=== PATIENT | male | born 1970 | race Caucasian/White ===

== ENCOUNTER 2018-02-02 05:52 | Observation (INO) | payer SELFPAY ==
[2018-02-02] VITALS (7 sets, daily range): BP systolic 107–152; BP diastolic 56–80; PULSE 50–75; RESP 18; TEMP 97.6–98.6; O2SAT 96–98
[~2018-02-02] VITALS: Ht 162.6 cm; Wt 103.0 kg
--- NOTE | 2018-02-02 06:22 | PD ---
HPI Chief Complaint: Abdominal Pain Time Seen by Provider: 06:17 Travel History International Travel<30 days: No Contact w/Intl Traveler<30days: No Traveled to known affect area: No History of Present Illness HPI 47-year-old male presents to the emergency department for 2 days of nausea vomiting diarrhea and abdominal pain. Patient reports has had similar symptoms in the past. Patient is status post partial bowel removal for reported history of intussusception. Patient denies history of inflammatory bowel disease/Crohn' s/ulcerative colitis. Patient states she has had bilious emesis and has noted some blood and dark stool with his diarrhea. Patient denies fever or chills. No report of chest pain or shortness of breath. No dysuria frequency urgency hematuria or flank pain. Patient is unable to identify exacerbating or alleviating factors. Pain is reported as 9/10 intensity. PFSH Past Medical History Narrative Medical Intussusception, partial bowel excision, tobacco use alcohol use substance use; nursing notes reviewed Medical History: Denies Significant Hx Diminished Hearing: No Past Surgical History Abdominal Surgery: Yes (8 INCHES OF SMALL INTESTINE REMOVED R/T INTUSSUSCEPTION ) Social History Alcohol Use: Yes (OCC) Tobacco Use: Yes (1PPD) Substance Use: Yes (WEED) Allergies-Medications (Allergen,Severity, Reaction): Coded Allergies: No Known Allergies (Unverified , 02/02/18) Reported Meds & Prescriptions Reported Meds & Active Scripts Active No Active Prescriptions or Reported Medications Review of Systems Except as stated in HPI: all other systems reviewed are Neg General / Constitutional: No: Fever, Chills HENT: No: Congestion Cardiovascular: No: Chest Pain or Discomfort Respiratory: No: Shortness of Breath Gastrointestinal: Positive: Nausea, Vomiting, Diarrhea, Abdominal Pain Genitourinary: No: Urgency, Frequency, Dysuria Musculoskeletal: No: Myalgias, Arthralgias Skin: No Rash Neurologic: Positive: Weakness Psychiatric: No: Anxiety Hematologic/Lymphatic: No: Lymph Node Enlargement Physical Exam Narrative GENERAL: Well-developed thin male disheveled appears to be in discomfort no respiratory distress SKIN: Warm and dry. HEAD: Normocephalic. EYES: No scleral icterus. No injection or drainage. NECK: Supple, trachea midline. No JVD or lymphadenopathy. CARDIOVASCULAR: Regular rate and rhythm without murmurs, gallops, or rubs. RESPIRATORY: Breath sounds equal bilaterally. No accessory muscle use. GASTROINTESTINAL: Abdomen soft, diffusely tender, nondistended. No guarding or rebound. MUSCULOSKELETAL: No cyanosis, or edema. BACK: Nontender without obvious deformity. No CVA tenderness. Data Data Last Documented VS Vital Signs Date Time Temp Pulse Resp B/P (MAP) Pulse Ox O2 Delivery O2 Flow Rate FiO2 02/02/18 06:05 58 18 130/77 (94) 98 Room Air 02/02/18 05:53 97.6 Orders Orders Complete Blood Count With Diff (02/02/18 06:08) Comprehensive Metabolic Panel (02/02/18 06:08) Urinalysis - C+S If Indicated (02/02/18 06:08) Iv Access Insert/Monitor (02/02/18 06:08) Oxygen Administration (02/02/18 06:08) Oximetry (02/02/18 06:08) Lipase (02/02/18 06:08) Lactic Acid (02/02/18 06:08) Sodium Chlor 0.9% 1000 Ml Inj (Ns 1000 M (02/02/18 06:30) Ondansetron Inj (Zofran Inj) (02/02/18 06:30) Ct Abd/Pel W Iv Contrast(Rout) (02/02/18 ) Labs Laboratory Tests Test 02/02/18 06:00 02/02/18 06:09 White Blood Count 11.8 TH/MM3 Red Blood Count 5.49 MIL/MM3 Hemoglobin 17.3 GM/DL Hematocrit 49.4 % Mean Corpuscular Volume 89.9 FL Mean Corpuscular Hemoglobin 31.5 PG Mean Corpuscular Hemoglobin Concent 35.0 % Red Cell Distribution Width 13.5 % Platelet Count 324 TH/MM3 Mean Platelet Volume 6.8 FL Neutrophils (%) (Auto) 86.6 % Lymphocytes (%) (Auto) 7.5 % Monocytes (%) (Auto) 5.8 % Eosinophils (%) (Auto) 0.0 % Basophils (%) (Auto) 0.1 % Neutrophils # (Auto) 10.2 TH/MM3 Lymphocytes # (Auto) 0.9 TH/MM3 Monocytes # (Auto) 0.7 TH/MM3 Eosinophils # (Auto) 0.0 TH/MM3 Basophils # (Auto) 0.0 TH/MM3 CBC Comment DIFF FINAL Differential Comment Total Protein 8.7 GM/DL Alkaline Phosphatase 67 U/L Alanine Aminotransferase (ALT/SGPT) 22 U/L Total Bilirubin 0.9 MG/DL Lactic Acid Level 2.3 mmol/L MDM Medical Decision Making Medical Screen Exam Complete: Yes Emergency Medical Condition: Yes Medical Record Reviewed: Yes Differential Diagnosis Gastroenteritis, colitis, diverticulitis, bowel obstruction; less likely intussusception or volvulus Narrative Course Patient placed on monitor IV access obtained specimens collected and sent for resulting; patient administered normal saline 1 L bolus along with Zofran 4 mg IV for complaint of nausea @ [address] signed over to oncoming MD Dr Johnson for pending labs/CT Scripts No Active Prescriptions or Reported Meds Ny Escalante MD Feb 02, 2018 06:22
[2018-02-02] MEDS ORDERED: ONDANSETRON HCL 4 MG/2 ML VIAL IV PUSH ONE ×2 (06:30→07:45)
[2018-02-02] MEDS ORDERED: SODIUM CHLOR 0.9% 1000 ML INJ 1,000 ML IV ONE (06:30)
[2018-02-02 06:40] LABS: AUTOMATED NEUTROPHIL # 10.2 TH/MM3 (1.8-7.7); BASOPHIL % 0.1 % (0.0-2.0); HEMATOCRIT 49.4 % (39.0-51.0); HEMOGLOBIN 17.3 GM/DL (13.0-17.0); LYMPH % 7.5 % (9.0-44.0); LYMPHOCYTE # 0.9 TH/MM3 (1.0-4.8); MEAN CELL VOLUME 89.9 FL (80.0-100.0); MEAN CORPUSCULAR HEMOGLOBIN 31.5 PG (27.0-34.0); MEAN PLATELET VOLUME 6.8 FL (7.0-11.0); MONO % 5.8 % (0.0-8.0); NEUT % 86.6 % (16.0-70.0); PLATELET COUNT 324 TH/MM3 (150-450); RED BLOOD COUNT 5.49 MIL/MM3 (4.50-5.90); RED CELL DISTRIBUTION WIDTH 13.5 % (11.6-17.2); WHITE BLOOD COUNT 11.8 TH/MM3 (4.0-11.0)
[2018-02-02 06:41] LABS: MONOCYTE # 0.7 TH/MM3 (0-0.9)
[2018-02-02 06:44] LABS: ALT (GPT) 22 U/L (12-78)
[2018-02-02 06:46] LABS: ALKALINE PHOSPHATASE 67 U/L (45-117); TOTAL BILIRUBIN ADULT 0.9 MG/DL (0.2-1.0); TOTAL PROTEIN 8.7 GM/DL (6.4-8.2)
[2018-02-02 07:14] LABS: ALBUMIN 4.7 GM/DL (3.4-5.0); AST (GOT) 20 U/L (15-37); BICARBONATE 29.4 MEQ/L (21.0-32.0); BLOOD UREA NITROGEN 29 MG/DL (7-18); CALCIUM 9.9 MG/DL (8.5-10.1); CHLORIDE 98 MEQ/L (98-107); CREATININE 1.62 MG/DL (0.60-1.30); GLOMERULAR FILTRATION RATE 46 ML/MIN (>89); GLUCOSE,RANDOM 135 MG/DL (74-106); SODIUM (NA) 136 MEQ/L (136-145)
[2018-02-02] MEDS ORDERED: KETOROLAC TROMETHAMINE 30 MG/ML (IVP) VIAL IV PUSH ONE (07:45)
[2018-02-02] MEDS ORDERED: IOHEXOL 350 MG/ML 10 ML VIAL (for RAD DIAG) IVCONTRAST ONE (07:47)
--- NOTE | 2018-02-02 08:33 | RADRPT ---
EXAM DATE/TIME: 02/02/2018 07:40 [facility] COMPARISON: No previous studies available for comparison. INDICATIONS : Nausea, vomiting and periumbilical pain for 2 days IV CONTRAST: 94 cc Omnipaque 350 (iohexol) IV ORAL CONTRAST: No oral contrast ingested. RADIATION DOSE: 6.64 CTDIvol (mGy) MEDICAL HISTORY : None SURGICAL HISTORY : partial bowel removal ENCOUNTER: Initial ACUITY: 2 days PAIN SCALE: 4/10 LOCATION: periumbilical TECHNIQUE: Volumetric scanning of the abdomen and pelvis was performed. Using automated exposure control and ad justment of the mA and/or kV according to patient size, radiation dose was kept as low as reasonably achievable to obtain optimal diagnostic quality images. DICOM format image data is available electro nically for review and comparison. FINDINGS: LOWER LUNGS: The visualized lower lungs are clear. LIVER: Homogeneous density without lesion. There is no dilation of the biliary tree. No calcified gallston es. SPLEEN: Normal size without lesion. PANCREAS: Within normal limits. KIDNEYS: Normal in size and shape. There is no mass, stone or hydronephrosis. ADRENAL GLANDS: Within normal limits. VASCULAR: There is no aortic aneurysm. BOWEL/MESENTERY: Fine surgical catherine are seen in the region of the small bowel the left upper abdominal quadrant aileen racteristic of a reported history of prior partial bowel resection. Just inferior to this location, t here appears to be an intussuscepted segment of small bowel with no concomitant evidence of more prox imal obstruction. This is located just inferior and left to the umbilicus region. ABDOMINAL WALL: Within normal limits. RETROPERITONEUM: There is no lymphadenopathy. BLADDER: No wall thickening or mass. REPRODUCTIVE: Within normal limits. INGUINAL: There is no lymphadenopathy or hernia. MUSCULOSKELETAL: Within normal limits for patient age. CONCLUSION: 1. CT findings concerning for a small bowel intussusception located in the periumbilical region just inferior and to the left of the umbilicus. This is located just inferior to an area of apparent prior small bowel resection. 2. No concomitant evidence of more proximal obstruction. Otherwise negative. Richie Maldonado MD on February 02, 2018 at 8:26 Board Certified Radiologist. This report was verified electronically.
[2018-02-02] MEDS ORDERED: DIATRIZOATE MEGLUM/DIATRIZOATE SOD 120 ML BTL (for RAD DIAG) PO ONE (08:45)
--- NOTE | 2018-02-02 08:54 | PD ---
Data Data Last Documented VS Vital Signs Date Time Temp Pulse Resp B/P (MAP) Pulse Ox O2 Delivery O2 Flow Rate FiO2 02/02/18 09:00 50 18 122/56 (78) 96 Room Air 02/02/18 05:53 97.6 Orders Orders Complete Blood Count With Diff (02/02/18 06:08) Comprehensive Metabolic Panel (02/02/18 06:08) Urinalysis - C+S If Indicated (02/02/18 06:08) Iv Access Insert/Monitor (02/02/18 06:08) Oxygen Administration (02/02/18 06:08) Oximetry (02/02/18 06:08) Lipase (02/02/18 06:08) Lactic Acid (02/02/18 06:08) Sodium Chlor 0.9% 1000 Ml Inj (Ns 1000 M (02/02/18 06:30) Ondansetron Inj (Zofran Inj) (02/02/18 06:30) Ct Abd/Pel W Iv Contrast(Rout) (02/02/18 ) Ondansetron Inj (Zofran Inj) (02/02/18 07:45) Ketorolac Inj (Toradol Inj) (02/02/18 07:45) Iohexol 350 Inj (Omnipaque 350 Inj) (02/02/18 07:47) Consult General Surgery (02/02/18 ) Place In Observation (02/02/18 ) Code Status (02/02/18 09:16) Vital Signs (Adult) Q4H (02/02/18 09:16) Activity Oob With Assistance (02/02/18 09:16) Diet Npo (02/02/18 Breakfast) Sodium Chlor 0.9% 1000 Ml Inj (Ns 1000 M (02/02/18 09:16) Sodium Chloride 0.9% Flush (Ns Flush) (02/02/18 09:30) Sodium Chloride 0.9% Flush (Ns Flush) (02/02/18 21:00) Acetaminophen (Tylenol) (02/02/18 09:30) Ondansetron Inj (Zofran Inj) (02/02/18 09:30) Temazepam (Restoril) (02/02/18 09:30) Comprehensive Metabolic Panel (02/03/18 06:00) Complete Blood Count With Diff (02/03/18 06:00) Case Management Consult (02/02/18 09:16) Heparin Inj (Heparin Inj) (02/02/18 09:30) Acetaminophen (Tylenol) (02/02/18 09:30) Ketorolac Inj (Toradol Inj) (02/02/18 09:30) Ketorolac Inj (Toradol Inj) (02/02/18 09:30) Naloxone Inj (Narcan Inj) (02/02/18 09:30) Magnesium Hydroxide Liq (Milk Of Magnesi (02/02/18 09:30) Piperacil-Tazo 3.375 Gm Premix (Zosyn 3. (02/02/18 10:00) Admit Order (Ed Use Only) (02/02/18 ) Labs Laboratory Tests Test 02/02/18 06:09 02/02/18 08:05 White Blood Count 11.8 TH/MM3 Red Blood Count 5.49 MIL/MM3 Hemoglobin 17.3 GM/DL Hematocrit 49.4 % Mean Corpuscular Volume 89.9 FL Mean Corpuscular Hemoglobin 31.5 PG Mean Corpuscular Hemoglobin Concent 35.0 % Red Cell Distribution Width 13.5 % Platelet Count 324 TH/MM3 Mean Platelet Volume 6.8 FL Neutrophils (%) (Auto) 86.6 % Lymphocytes (%) (Auto) 7.5 % Monocytes (%) (Auto) 5.8 % Eosinophils (%) (Auto) 0.0 % Basophils (%) (Auto) 0.1 % Neutrophils # (Auto) 10.2 TH/MM3 Lymphocytes # (Auto) 0.9 TH/MM3 Monocytes # (Auto) 0.7 TH/MM3 Eosinophils # (Auto) 0.0 TH/MM3 Basophils # (Auto) 0.0 TH/MM3 CBC Comment DIFF FINAL Differential Comment Blood Urea Nitrogen 29 MG/DL Creatinine 1.62 MG/DL Random Glucose 135 MG/DL Total Protein 8.7 GM/DL Albumin 4.7 GM/DL Calcium Level 9.9 MG/DL Alkaline Phosphatase 67 U/L Aspartate Amino Transf (AST/SGOT) 20 U/L Alanine Aminotransferase (ALT/SGPT) 22 U/L Total Bilirubin 0.9 MG/DL Sodium Level 136 MEQ/L Potassium Level 3.7 MEQ/L Chloride Level 98 MEQ/L Carbon Dioxide Level 29.4 MEQ/L Anion Gap 9 MEQ/L Estimat Glomerular Filtration Rate 46 ML/MIN Lactic Acid Level 2.3 mmol/L Lipase 57 U/L Urine Color YELLOW Urine Turbidity CLEAR Urine pH 6.0 Urine Specific [place] GREATER THAN 1.050 Urine Protein 30 mg/dL Urine Glucose (UA) NEG mg/dL Urine Ketones 40 mg/dL Urine Occult Blood SMALL Urine Nitrite NEG Urine Bilirubin NEG Urine Urobilinogen LESS THAN 2.0 MG/DL Urine Leukocyte Esterase NEG Urine RBC 1 /hpf Urine WBC 1 /hpf Urine Squamous Epithelial Cells <1 /hpf Urine Mucus MOD /lpf Microscopic Urinalysis Comment CULT NOT INDICATED MDM Supervised Visit with JARVIS: No Narrative Course Patient CARE soon from Dr. Ny Escalante at 0700 this is a 47-year-old male with a history of recurrent sporadic intussusception, he has been told that he needed surgery in the past but states he has never had surgery for his intussusception. States it always spontaneously resolved itself. CAT scan shows a fair length of bowel that is intussuscepted, surgical consult was placed Dr. Tijerina, will be expectedly management in the early going of his hospitalization. Discussed with hospitalist service for admission. His pain fairly well under control, discussed the results with the patient and he is agreeable. Diagnosis Primary Impression: Intussusception Admitting Information Admitting Physician Requests: Admit Scripts No Active Prescriptions or Reported Meds Condition: Vargas Bernal MD Feb 02, 2018 08:53
[2018-02-02 09:11] LABS: BILIRUBIN, URINE NEG (NEG); BLOOD, URINE SMALL (NEG); GLUCOSE,URINE NEG (NEG); KETONE, URINE 40 mg/dL (NEG); MUCUS URINE MOD /lpf (OCC); NITRITE,URINE NEG (NEG); SQUAMOUS EPITHELIAL CELL URINE <1 /hpf (0-5); URINE COLOR YELLOW (YELLW/STRAW); URINE LEUKOCYTE ESTERASE NEG (NEG)
[2018-02-02] MEDS ORDERED: TEMAZEPAM 15 MG CAP PO PRN (09:30)
[2018-02-02] MEDS ORDERED: NALOXONE HCL 0.4 MG/ML AMP IV PUSH PRN (09:30)
[2018-02-02] MEDS ORDERED: KETOROLAC TROMETHAMINE 30 MG/ML (IVP) VIAL IV PUSH PRN (09:30)
[2018-02-02] MEDS ORDERED: ACETAMINOPHEN 325 MG TAB PO PRN ×2 (09:30)
[2018-02-02] MEDS ORDERED: SODIUM CHLORIDE 0.9% FLUSH 10 ML FLUSH IV FLUSH PRN (09:30)
[2018-02-02] MEDS ORDERED: MAGNESIUM HYDROXIDE SUSP 30 ML CUP PO PRN (09:30)
[2018-02-02] MEDS: SODIUM CHLOR 0.9% 1000 ML INJ 1,000 ML IV SCH ×2 (09:53→17:00)
[2018-02-02] MEDS: HEPARIN SODIUM - SQ 10,000 UNITS/ML VIAL SQ SCH ×2 (10:43→20:20)
[2018-02-02] MEDS: MORPHINE SULFATE 2 MG/ML INJ IV PUSH PRN (10:43)
[2018-02-02] MEDS: PIPERACIL-TAZO 3.375 GM PREMIX 50 ML IV SCH ×2 (10:44→19:01)
[2018-02-02] MEDS: ONDANSETRON HCL 4 MG/2 ML VIAL IVP PRN ×3 (10:44→20:20)
--- NOTE | 2018-02-02 12:08 | MB ---
cc: Jose Tijerina MD DATE OF CONSULT: REASON FOR CONSULTATION: Abdominal pain, intussusception. HISTORY OF PRESENT ILLNESS: Patient is a 47-year-old male who presents with a 2-day history of nausea, vomiting and abdominal pain. Patient states the pain started progressively. It was left-sided periumbilical and continued to get worse. Pain was 6/10, currently is 4/10, diffuse, achy, worse with movement, better with lying still. Patient came to the emergency department for further evaluation, including CT scan showing findings of intussusception; therefore, surgery was consulted. Patient confirms above and further denies any significant medical history other than noted to have a previous intussusception status post surgical resection 3 years ago. Patient has unknown pathology and states this was done in [place]. He states since this, he has had several recurrent bouts of intussusception, approximately 5 times, all treated with CT scans and nonoperative management, IV fluids and pain control. He presents with a recurrent episode. He further denies any weight loss. He denies any family history of cancers. PAST MEDICAL HISTORY: Intussusception. PAST SURGICAL HISTORY: Small bowel resection for intussusception. SOCIAL HISTORY: Positive ETOH, positive smoking, positive THC. ALLERGIES: NO KNOWN DRUG ALLERGIES. MEDICATIONS: See EMR. FAMILY HISTORY: Mother with diabetes. Denies CAD or hypertension. REVIEW OF SYSTEMS: GENERAL: Denies fevers, chills. HEENT: Denies eye pain, ear pain. NECK: Denies swelling or pain. LUNGS: Denies cough or wheeze. HEART: Denies chest pain or palpitations. ABDOMEN: Complains of nausea, vomiting, diarrhea. GENITOURINARY: Denies dysuria, hematuria. ENDOCRINE: Denies polyuria or polydipsia. NEUROLOGIC: Denies numbness or weakness. PSYCHIATRIC: Denies anxiety or change in mood. PHYSICAL EXAMINATION: GENERAL: Patient no acute distress. VITAL SIGNS: Temperature 97.6, pulse 58, respiration 18, blood pressure 130/77, saturation 98%. HEENT: Pupils equal, round, reactive. NECK: Supple. Trachea midline. LUNGS: Clear to auscultation bilaterally. HEART: S1, S2. Regular rhythm. ABDOMEN: Soft. Nondistended. Mild tenderness to palpation left periumbilical area. No rebound, no guarding. Well-healed surgical scars. EXTREMITIES: Warm, well perfused. BACK: No deformity. NEUROLOGIC: GCS of 15. 5/5 movement all extremities. LABORATORY AND DIAGNOSTIC DATA: WBC 11.8, hemoglobin 17.3, hematocrit 49.4, platelets 324. Sodium 136, potassium 3.7, chloride 98, BUN 29, creatinine 1.6, glucose 135, lactate 2.3, AST 20, ALT 22, lipase 57. CT reviewed by myself showing intussusception bowel, no evidence of free air or free fluid, evidence of previous anastomosis. ASSESSMENT: Patient 47-year-old male, recurrent intussusception. PLAN: After full workup, patient with above main issues. Patient does have intussusception on CT scan. At this point, I discussed with patient regarding potential options and regarding possible surgery versus observation. It does not appear that patient has any peritoneal signs or evidence of bowel ischemia or perforation; however, I did discuss with this patient that there is a risk of these issues regarding intussusception. Further, there is nondefinitive diagnosis as the cause of the intussusception and told the patient concern could be some sort of mass or malignancy. I stated this may be a little less common given his long history of intussusception; however, until the bowel is resected, we would not have any definitive pathology. At this point, he states his pain has improved some. He is not currently vomiting and would like to attempt nonoperative management. We will follow patient with abdominal exams, labs. Discussed with patient if increased white blood cell count or fever, may need operative intervention; however, we will consider getting a small bowel follow through in a few days and bowel rest for now. He is in agreement with this. Thank you for consultation. MD VIDYA Foster/MARK , 11:48 AM , 12:07 PM
[2018-02-02] MEDS ORDERED: MORPHINE SULFATE 2 MG/ML INJ IV PUSH PRN (14:45)
--- NOTE | 2018-02-02 14:52 | HHI.HP ---
[facility] No Primary Care Physician Admission Diagnosis Intussusception. Diagnoses: (1) Intussusception of small bowel (2) Tobacco abuse (3) Leukocytosis Chief Complaint: Abdominal pain Travel History International Travel<30 Days: No Contact w/Intl Traveler <30 Da: No Traveled to Known Affected Are: No History of Present Illness 47 years old man with a known history of Intussusception and s/p small bowel resection 3 yrs ago with multiple recurrent of intussusception at least 5 times over the past several months, presents to the ED for evaluation of 2-3 days history of nausea and vomiting along with 8/10 left sided abdominal as well as periumbilical pain, which is described as squeezing and dull in nature. Patient states lying still relieves the pain. CT abdomen reveals intussusception. He was previously in the hospital and treated conservatively with IVF hydration as well as pain management. He currently denies any febrile episode of GI bleed Review of Systems Except as stated in HPI: all other systems reviewed are Neg Past Family Social History Past Medical History Intussusception Tobacco abuse Past Surgical History small bowel resection Reported Medications Not on any medication Allergies: Coded Allergies: No Known Allergies (Unverified , 02/02/18) Family History Positive for DM Social History smokes 1ppd, +marijuana, reports social alcohol intake Physical Exam Vital Signs Vital Signs Date Time Temp Pulse Resp B/P (MAP) Pulse Ox O2 Delivery O2 Flow Rate FiO2 02/02/18 13:47 75 18 128/67 (87) 96 Room Air 02/02/18 09:00 50 18 122/56 (78) 96 Room Air 02/02/18 07:30 96 Room Air 02/02/18 07:30 96 Room Air 02/02/18 06:05 58 18 130/77 (94) 98 Room Air 02/02/18 05:53 97.6 58 18 145/74 (97) 98 Physical Exam GENERAL: This is a well-nourished, well-developed patient, in no apparent distress. SKIN: No rashes, ecchymoses or lesions. Cool and dry. HEAD: Atraumatic. Normocephalic. No temporal or scalp tenderness. EYES: Pupils equal round and reactive. Extraocular motions intact. No scleral icterus. No injection or drainage. ENT: Nose without bleeding, purulent drainage or septal hematoma. Throat without erythema, tonsillar hypertrophy or exudate. Uvula midline. Airway patent. NECK: Trachea midline. No JVD or lymphadenopathy. Supple, nontender, no meningeal signs. CARDIOVASCULAR: Regular rate and rhythm without murmurs, gallops, or rubs. RESPIRATORY: Clear to auscultation. Breath sounds equal bilaterally. No wheezes , rales, or rhonchi. GASTROINTESTINAL: Abdomen soft, mildly tender LLQ, nondistended. No hepato- splenomegaly, or palpable masses. No guarding. MUSCULOSKELETAL: Extremities without clubbing, cyanosis, or edema. No joint tenderness, effusion, or edema noted. No calf tenderness. Negative Homans sign bilaterally. NEUROLOGICAL: Awake and alert. Cranial nerves II through XII intact. Motor and sensory grossly within normal limits. Five out of 5 muscle strength in all muscle groups. Normal speech. Laboratory Laboratory Tests Test 02/02/18 06:09 02/02/18 08:05 White Blood Count 11.8 Red Blood Count 5.49 Hemoglobin 17.3 Hematocrit 49.4 Mean Corpuscular Volume 89.9 Mean Corpuscular Hemoglobin 31.5 Mean Corpuscular Hemoglobin Concent 35.0 Red Cell Distribution Width 13.5 Platelet Count 324 Mean Platelet Volume 6.8 Neutrophils (%) (Auto) 86.6 Lymphocytes (%) (Auto) 7.5 Monocytes (%) (Auto) 5.8 Eosinophils (%) (Auto) 0.0 Basophils (%) (Auto) 0.1 Neutrophils # (Auto) 10.2 Lymphocytes # (Auto) 0.9 Monocytes # (Auto) 0.7 Eosinophils # (Auto) 0.0 Basophils # (Auto) 0.0 CBC Comment DIFF FINAL Differential Comment Blood Urea Nitrogen 29 Creatinine 1.62 Random Glucose 135 Total Protein 8.7 Albumin 4.7 Calcium Level 9.9 Alkaline Phosphatase 67 Aspartate Amino Transf (AST/SGOT) 20 Alanine Aminotransferase (ALT/SGPT) 22 Total Bilirubin 0.9 Sodium Level 136 Potassium Level 3.7 Chloride Level 98 Carbon Dioxide Level 29.4 Anion Gap 9 Estimat Glomerular Filtration Rate 46 Lactic Acid Level 2.3 Lipase 57 Urine Color YELLOW Urine Turbidity CLEAR Urine pH 6.0 Urine Specific [place] [employer] GREATER THAN 1.050 Urine Protein 30 Urine Glucose (UA) NEG Urine Ketones 40 Urine Occult Blood SMALL Urine Nitrite NEG Urine Bilirubin NEG Urine Urobilinogen LESS THAN 2.0 Urine Leukocyte Esterase NEG Urine RBC 1 Urine WBC 1 Urine Squamous Epithelial Cells <1 Urine Mucus MOD Microscopic Urinalysis Comment CULT NOT INDICATED Result Diagram: 02/02/18 0609 02/02/18 0609 Imaging Last Impressions Abdomen/Pelvis CT 02/02/18 0000 Signed Impressions: Service Date/Time: January 07:40 - CONCLUSION: 1. CT findings concerning for a small bowel intussusception located in the periumbilical region just inferior and to the left of the umbilicus. This is located just inferior to an area of apparent prior small bowel resection. 2. No concomitant evidence of more proximal obstruction. Otherwise negative. Richie Maldonado MD Septic Shock Reassessment Septic shock perfusion: reassessment completed Caprini VTE Risk Assessment Caprini VTE Risk Assessment: No/Low Risk (score <= 1) Caprini Risk Assessment Model Point Value = 1 Point Value = 2 Point Value = 3 Point Value = 5 Age 41-60 Minor surgery BMI > 25 kg/m2 Swollen legs Varicose veins or History of unexplained or recurrent spontaneous Oral contraceptives or hormone replacement Sepsis (< 1 month) Serious lung disease, including pneumonia (< 1 month) Abnormal pulmonary function Acute myocardial infarction Congestive heart failure (< 1 month) History of inflammatory bowel disease Medical patient at bed rest Age 61-74 Arthroscopic surgery Major open surgery (> 45 min) Laparoscopic surgery (> 45 min) Malignancy Confined to bed (> 72 hours) Immobilizing plaster cast Central venous access Age >= 75 History of VTE Family history of VTE Factor V Leiden Prothrombin [id number] Lupus anticoagulant Anticardiolipin antibodies Elevated serum homocysteine Heparin-induced thrombocytopenia Other congenital or acquired thrombophilia Stroke (< 1 month) Elective arthroplasty Hip, pelvis, or leg fracture Acute spinal cord injury (< 1 month) Prophylaxis Regimen Total Risk Factor Score Risk Level Prophylaxis Regimen 0-1 Low Early ambulation 2 Moderate Order ONE of the following: *Sequential Compression Device (SCD) *Heparin 5000 units SQ BID 3-4 Higher Order ONE of the following medications: *Heparin 5000 units SQ TID *Enoxaparin/Lovenox 40 mg SQ daily (WT < 150 kg, CrCl > 30 mL/min) *Enoxaparin/Lovenox 30 mg SQ daily (WT < 150 kg, CrCl > 10-29 mL/min) *Enoxaparin/Lovenox 30 mg SQ BID (WT < 150 kg, CrCl > 30 mL/min) AND/OR *Sequential Compression Device (SCD) 5 or more Highest Order ONE of the following medications: *Heparin 5000 units SQ TID (Preferred with Epidurals) *Enoxaparin/Lovenox 40 mg SQ daily (WT < 150 kg, CrCl > 30 mL/min) *Enoxaparin/Lovenox 30 mg SQ daily (WT < 150 kg, CrCl > 10-29 mL/min) *Enoxaparin/Lovenox 30 mg SQ BID (WT < 150 kg, CrCl > 30 mL/min) AND *Sequential Compression Device (SCD) Assessment and Plan Problem List: (1) Intussusception of small bowel ICD Code: K56.1 - Intussusception (2) Blood glucose elevated ICD Code: R73.9 - Hyperglycemia, unspecified (3) Leukocytosis ICD Code: D72.829 - Elevated white blood cell count, unspecified (4) Tobacco abuse ICD Code: Z72.0 - Tobacco use Assessment and Plan 47 years old man with Intussusception of small bowel CT abdomen/pelvis noted and review with finding of intussusception General surgery consulted Keep NPO, IVF hydration, Parenteral Pain management Empiric Zosyn IV will be started Check SBFT in AM Blood Glucose elevated No known history of DM, check HgA1C and treat accordingly Tobacco abuse Tobacco cessation counselling provided Start Nicotine TD daily DVT prophylaxis: Heparin Code Status Full code Discussed Condition With Patient, , ED physician Tommy Coppola MD Feb 02, 2018 14:52
[2018-02-02] MEDS: NICOTINE 21 MG/24 HR PATCH T-DERMAL SCH (17:03)
[2018-02-02] MEDS: SODIUM CHLORIDE 0.9% FLUSH 10 ML FLUSH IV FLUSH SCH (20:20)
[2018-02-02] MEDS: KETOROLAC TROMETHAMINE 30 MG/ML (IVP) VIAL IV PUSH PRN (23:33)
[2018-02-03 00:58] VITALS: BP 141/75; PULSE 73; RESP 18; TEMP 98.3; O2SAT 97
[2018-02-03] MEDS: PIPERACIL-TAZO 3.375 GM PREMIX 50 ML IV SCH ×3 (03:00→16:44)
[2018-02-03] MEDS: KETOROLAC TROMETHAMINE 30 MG/ML (IVP) VIAL IV PUSH PRN (06:41)
[2018-02-03] MEDS: SODIUM CHLOR 0.9% 1000 ML INJ 1,000 ML IV SCH ×2 (06:42→14:27)
[2018-02-03 08:05] VITALS: BP 123/68; PULSE 55; RESP 20; TEMP 98.9; O2SAT 99
[2018-02-03 08:15] LABS: AUTOMATED NEUTROPHIL # 7.7 TH/MM3 (1.8-7.7); BASOPHIL % 0.3 % (0.0-2.0); HEMATOCRIT 40.4 % (39.0-51.0); HEMOGLOBIN 14.1 GM/DL (13.0-17.0); LYMPH % 13.2 % (9.0-44.0); LYMPHOCYTE # 1.3 TH/MM3 (1.0-4.8); MEAN CELL VOLUME 91.3 FL (80.0-100.0); MEAN CORPUSCULAR HEMOGLOBIN 31.8 PG (27.0-34.0); MEAN CORPUSCULAR HGB CONC 34.8 % (32.0-36.0); MEAN PLATELET VOLUME 6.8 FL (7.0-11.0); MONO % 9.4 % (0.0-8.0); MONOCYTE # 0.9 TH/MM3 (0-0.9); NEUT % 77.1 % (16.0-70.0); PLATELET COUNT 230 TH/MM3 (150-450); RED BLOOD COUNT 4.42 MIL/MM3 (4.50-5.90); RED CELL DISTRIBUTION WIDTH 13.2 % (11.6-17.2)
[2018-02-03] MEDS: MORPHINE SULFATE 2 MG/ML INJ IV PUSH PRN (08:25)
[2018-02-03] MEDS: HEPARIN SODIUM - SQ 10,000 UNITS/ML VIAL SQ SCH (08:26)
[2018-02-03] MEDS: ONDANSETRON HCL 4 MG/2 ML VIAL IVP PRN (08:26)
[2018-02-03] MEDS: SODIUM CHLORIDE 0.9% FLUSH 10 ML FLUSH IV FLUSH SCH (08:27)
[2018-02-03] MEDS: NICOTINE 21 MG/24 HR PATCH T-DERMAL SCH (08:27)
[2018-02-03 08:53] LABS: ALBUMIN 3.3 GM/DL (3.4-5.0); ALKALINE PHOSPHATASE 45 U/L (45-117); ALT (GPT) 16 U/L (12-78); AST (GOT) 11 U/L (15-37); BICARBONATE 29.1 MEQ/L (21.0-32.0); BLOOD UREA NITROGEN 16 MG/DL (7-18); CALCIUM 7.7 MG/DL (8.5-10.1); CHLORIDE 109 MEQ/L (98-107); CHOLESTEROL 154 MG/DL (120-200); CHOLESTEROL/ HDL RATIO 2.66 RATIO; CREATININE 1.07 MG/DL (0.60-1.30); GLOMERULAR FILTRATION RATE 73 ML/MIN (>89); GLUCOSE,RANDOM 96 MG/DL (74-106); HDL CHOLESTEROL 57.8 MG/DL (40.0-60.0); LDL CHOLESTEROL 73 MG/DL (0-99); SODIUM (NA) 144 MEQ/L (136-145); TOTAL BILIRUBIN ADULT 0.7 MG/DL (0.2-1.0); TOTAL PROTEIN 6.2 GM/DL (6.4-8.2); TRIGLYCERIDES 115 MG/DL (42-150)
[2018-02-03] MEDS ORDERED: REMOVE OLD PATCH T-DERMAL SCH (09:00)
--- NOTE | 2018-02-03 10:42 | RADRPT ---
EXAM DATE/TIME: 02/03/2018 08:42 [place] COMPARISON: No previous studies available for comparison. INDICATIONS : Intussusception per CT report. FLUORO TIME: 0.3 minutes IMAGE COUNT: 10 CONTRAST: MD Recinos IMAGING TIME(S): 15 min, 30 min, 45 min, 1 hr, 1.5 hrs MEDICAL HISTORY : None. SURGICAL HISTORY : 8" of small bowel removed due to intussusception. ENCOUNTER: Subsequent ACUITY: 3 days PAIN SCORE: 8/10 LOCATION: mid abdomen. FINDINGS: Preliminary film is unremarkable. The stomach is grossly unremarkable. Examination of the small bowel demonstrates normal mucosal pattern involving the jejunum and ileum. There is no evidence of mass or obstruction. No intraluminal filling defects are identified. Small bowel transit time is normal at approximately 60 minutes .Fluoroscopy of the abdomen and terminal ile um demonstrates no abnormality. CONCLUSION: Unremarkable small bowel examination. I do not see evidence for an intussusception which is well visualized on the CT scan of 02/03/2008 Bowel gas pattern appears normal. There is no bowel wall thickening. Tavares Singletary MD FACR on February 03, 2018 at 10:38 Board Certified Radiologist. This report was verified electronically.
[2018-02-03 11:53] VITALS: BP 138/75; PULSE 56; RESP 20; TEMP 98.6; O2SAT 99
--- NOTE | 2018-02-03 13:45 | HHI.PR ---
Subjective Remarks Follow-up intussusception. Feels much better denies nausea, vomiting and abdominal pain. He is passing flatus. He wants to eat and drink and wants to go home. Discussed with general surgery, follow-up SBFT negative for intussusception will start diet and if tolerated discharge home. Objective Vitals Vital Signs Date Time Temp Pulse Resp B/P (MAP) Pulse Ox O2 Delivery O2 Flow Rate FiO2 02/03/18 11:53 98.6 56 20 138/75 (96) 99 02/03/18 08:05 98.9 55 20 123/68 (86) 99 02/03/18 00:58 98.3 73 18 141/75 (97) 97 02/02/18 20:54 98.6 58 18 107/56 (73) 96 02/02/18 17:46 98.0 51 18 152/80 (104) 97 02/02/18 13:47 75 18 128/67 (87) 96 Room Air I/O 02/02/18 02/02/18 02/02/18 02/03/18 02/03/18 02/03/18 07:00 15:00 23:00 07:00 15:00 23:00 Intake Total 1000 ml Balance 1000 ml Intake IV Total 1000 ml Result Diagram: 02/03/18 0719 02/03/18 0719 Imaging Last Impressions Small Bowel X-Ray 02/03/18 0600 Signed Impressions: Service Date/Time: Saturday, February 03, 2018 08:42 - CONCLUSION: Unremarkable small bowel examination. I do not see evidence for an intussusception which is well visualized on the CT scan of 02/03/2008 Bowel gas pattern appears normal. There is no bowel wall thickening. Taavres Singletary MD FACR Abdomen/Pelvis CT 02/02/18 0000 Signed Impressions: Service Date/Time: January 07:40 - CONCLUSION: 1. CT findings concerning for a small bowel intussusception located in the periumbilical region just inferior and to the left of the umbilicus. This is located just inferior to an area of apparent prior small bowel resection. 2. No concomitant evidence of more proximal obstruction. Otherwise negative. Richie Maldonado MD Objective Remarks GENERAL: This is a well-nourished, well-developed patient, in no apparent distress. SKIN: No rashes, ecchymoses or lesions. Cool and dry. CARDIOVASCULAR: Regular rate and rhythm without murmurs, gallops, or rubs. RESPIRATORY: Clear to auscultation. Breath sounds equal bilaterally. No wheezes , rales, or rhonchi. GASTROINTESTINAL: Abdomen soft, nontender. No guarding. MUSCULOSKELETAL: Extremities without clubbing, cyanosis, or edema. No joint tenderness, effusion, or edema noted. No calf tenderness. Negative Homans sign bilaterally. NEUROLOGICAL: Awake and alert. Cranial nerves II through XII intact. Motor and sensory grossly within normal limits. Five out of 5 muscle strength in all muscle groups. Normal speech. Procedures none A/P Problem List: (1) Intussusception of small bowel ICD Code: K56.1 - Intussusception (2) Blood glucose elevated ICD Code: R73.9 - Hyperglycemia, unspecified (3) Leukocytosis ICD Code: D72.829 - Elevated white blood cell count, unspecified (4) Tobacco abuse ICD Code: Z72.0 - Tobacco use Assessment and Plan 47 years old man with Intussusception of small bowel. Follow-up SBFT with no evidence. Start diet and if tolerated DC home Blood Glucose elevated. Fasting glucose within normal limits. Pending A1c in Acute kidney injury secondary to dehydration. Improved with IV hydration. Avoid nephrotoxins Tobacco and marijuana abuse. Patient has been counseled DVT prophylaxis: Heparin Discharge Planning Discharge patient to home Condition on discharge: Improved Regular Diet as tolerated Ad Lillian activity Rx written: None Follow-up with primary care physician Darrius Castillo MD Feb 03, 2018 13:45
--- NOTE | 2018-02-03 15:32 | HHI.PR ---
Subjective Subjective Notes Resting in bed Feels hungry Objective Vitals/I&O Vital Signs Date Time Temp Pulse Resp B/P (MAP) Pulse Ox O2 Delivery O2 Flow Rate FiO2 02/03/18 11:53 98.6 56 20 138/75 (96) 99 02/02/18 13:47 Room Air Labs Laboratory Tests Test 02/03/18 07:19 White Blood Count 10.0 Red Blood Count 4.42 Hemoglobin 14.1 Hematocrit 40.4 Mean Corpuscular Volume 91.3 Mean Corpuscular Hemoglobin 31.8 Mean Corpuscular Hemoglobin Concent 34.8 Red Cell Distribution Width 13.2 Platelet Count 230 Mean Platelet Volume 6.8 Neutrophils (%) (Auto) 77.1 Lymphocytes (%) (Auto) 13.2 Monocytes (%) (Auto) 9.4 Eosinophils (%) (Auto) 0.0 Basophils (%) (Auto) 0.3 Neutrophils # (Auto) 7.7 Lymphocytes # (Auto) 1.3 Monocytes # (Auto) 0.9 Eosinophils # (Auto) 0.0 Basophils # (Auto) 0.0 CBC Comment DIFF FINAL Differential Comment Blood Urea Nitrogen 16 Creatinine 1.07 Random Glucose 96 Total Protein 6.2 Albumin 3.3 Calcium Level 7.7 Alkaline Phosphatase 45 Aspartate Amino Transf (AST/SGOT) 11 Alanine Aminotransferase (ALT/SGPT) 16 Total Bilirubin 0.7 Sodium Level 144 Potassium Level 3.9 Chloride Level 109 Carbon Dioxide Level 29.1 Anion Gap 6 Estimat Glomerular Filtration Rate 73 Triglycerides Level 115 Cholesterol Level 154 LDL Cholesterol 73 HDL Cholesterol 57.8 Cholesterol/HDL Ratio 2.66 Cardiovascular: Regular Lungs: Clear Abdomen: Non-distended, Non-tender Extremities: No edema A/P Assessment and Plan 47 year old male with abdominal pain; intussusception -SBFT shows normal gas pattern; no intussusception -Regular diet -OOB and mobilize -DC home if tolerating diet; He will follow up with [facility] where he is from [place] [facility]oz/[facility] S[facility] ROBERTS Feb 03, 2018 15:32
[2018-02-03 15:44] VITALS: BP 153/76; PULSE 60; RESP 16; TEMP 97.8; O2SAT 100
--- NOTE | 2018-02-03 16:18 | HHI.DCPOC ---
Discharge Care Plan Diagnosis: (1) Intussusception of small bowel Goals to Promote Your Health * To prevent worsening of your condition and complications * To maintain your health at the optimal level Directions to Meet Your Goals Take your medications as prescribed Follow your dietary instruction Follow activity as directed Keep your appointments as scheduled Take your immunizations and boosters as scheduled If your symptoms worsen call your PCP, if no PCP go to Urgent Care Center or Emergency Room Smoking is Dangerous to Your Health. Avoid second hand smoke Call the 24-hour hour crisis hotline for domestic abuse at Lynne Vega PA-C Feb 03, 2018 4:18 pm
[2018-02-03 16:37] LABS: HEMOGLOBIN A1C 5.7 % (4.3-6.0)
== END 2018-02-03 19:13 | disposition home or self-care (01) ==
LOC: NEPC 05:52 → INTOOBSV 09:22 → NEDA 09:22 → NEDH 15:02 → NEPGCP 16:02
PROVIDERS: ADMIT Internal Medicine; ATTEND Internal Medicine
DX: K56.1 Intussusception (principal); D72.829 Elevated white blood cell count, unspecified; R73.9 Hyperglycemia, unspecified; E86.0 Dehydration; F17.210 Nicotine dependence, cigarettes, uncomplicated
CPT/HCPCS: 74177; 74250; 80053; 80061; 81001; 83036; 83605; 83690; 85025; 96361; 96365; 96366; 96375; 96376; 99285; G0378; J1644; J1885; J2270; J2405; J2543; J7030; Q9963; Q9967